=== PATIENT | female | born 1995 | race Caucasian/White ===

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

== ENCOUNTER 2017-03-16 16:28 | Emergency (ER) | payer BC ==
[2017-03-16 16:42] VITALS: BP 112/69
--- NOTE | 2017-03-16 17:54 | UC ---
FLU HPI - HPI Summary HPI Summary: THREE DAYS OF FEVER, FATIGUE, BODY ACHES, SORE THROAT. 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 Hx Last Menstrual Period: 1 WEEK AGO Onset/Duration: Gradual Onset, Lasting Days, Still Present Severity Currently: Moderate Severity Initially: Moderate Associated Signs & Symptoms: Positive: Fever, F/C, Myalgia, Sore Throat Related Hx: Possible Flu/Infectious Exposure - Risk Factors Influenza Risk Factors: Negative - Allergy/Home Medications Allergies/Adverse Reactions: Allergies Allergy/AdvReac Type Severity Reaction Status Date / Time No Known Allergies Allergy Verified 03/16/17 16:36 Home Medications: Home Medications Acetaminophen [Acetaminophen Extra Stren] 2 tab PO TID PRN 03/16/17 [History Confirmed 03/16/17] PMH/Surg Hx/FS Hx/Imm Hx Previously Healthy: Yes Endocrine History Of: Denies: Diabetes, Thyroid Disease Cardiovascular History Of: Denies: Cardiac Disorders, Hypertension Respiratory History Of: Denies: COPD, Asthma GI/ History Of: Denies: Ulcer - Surgical History Surgical History: Yes Surgery Procedure, Year, and Place: wisdom teeth extraction, bilat tubes - Family History Known Family History: Positive: Hypertension Negative: Renal Disease - Social History Occupation: Student Lives: With Family Alcohol Use: Rare Substance Use Type: None Smoking Status (MU): Never Smoked Tobacco Review of Systems Constitutional: Fever, Chills, Fatigue Skin: Negative Eyes: Negative ENT: Sore Throat Respiratory: Negative Cardiovascular: Negative Gastrointestinal: Negative Genitourinary: Negative Motor: Negative Neurovascular: Negative Musculoskeletal: Myalgia Neurological: Negative Psychological: Negative All Other Systems Reviewed And Are Negative: Yes Physical Exam Triage Information Reviewed: Yes Appearance: Well-Appearing, No Pain Distress, Well-Nourished Vital Signs: Initial Vital Signs Temp 99.0 F 03/16/17 16:38 Pulse 123 03/16/17 16:38 Resp 20 03/16/17 16:38 BP 112/69 03/16/17 16:38 Pulse Ox 98 03/16/17 16:38 Vital Signs Reviewed: Yes Eye Exam: Normal ENT: Positive: Hearing grossly normal, Pharyngeal erythema, TMs normal, Tonsillar swelling Dental Exam: Normal Neck exam: Normal Neck: Positive: Supple, Nontender, No Lymphadenopathy, Other: - NEGATIVE KERNIGS. Negative: Nuchal Rigidity, Tenderness @, Enlarged Nodes @ Respiratory Exam: Normal Respiratory: Positive: Chest non-tender, Lungs clear, Normal breath sounds, No respiratory distress Cardiovascular Exam: Normal Cardiovascular: Positive: RRR, No Murmur, Pulses Normal Abdominal Exam: Normal Abdomen Description: Positive: Nontender, No Organomegaly, Soft Musculoskeletal Exam: Normal Musculoskeletal: Positive: Strength Intact, ROM Intact, No Edema Neurological Exam: Normal Psychological Exam: Normal Psychological: Positive: Normal Response To Family Skin Exam: Normal Flu Course/Dx - Course Course Of Treatment: A2X ATTEMPT TO GET BLOOD DRAW FOR MONOSPOT. UNABLE TO SOURCE VEIN. PATIENT ELECTED TO CALL PRIMARY CARE AND GET APPOINTMENT FOR OUT PATIENT LAB TO HAVE MONOSPOT DRAWN. - Differential Dx/Diagnosis Differential Diagnosis/HQI/PQRI: Influenza, Upper Respiratory Infection, Other - STREP MONO Provider Diagnoses: TONSILLITIS. VIRAL SYNDROME; MONONUCLEOSIS Discharge - Discharge Plan Condition: Stable Disposition: HOME Patient Education Materials: Mononucleosis (ED), Tonsillitis (ED), Viral Syndrome (ED) Forms: *School Release Referrals: Carolina Sutton MD [Primary Care Provider] -
== END 2017-03-16 18:04 | disposition home or self-care (01) ==
LOC: UCEAST 16:28
DX: J03.90 Acute tonsillitis, unspecified (principal); B34.9 Viral infection, unspecified; B27.90 Infectious mononucleosis, unspecified without complication
CPT/HCPCS: 87502; 87651; 99211; G0463

== ENCOUNTER 2017-05-01 10:33 | Emergency (ER) | payer BC ==
[2017-05-01 11:38] VITALS: BP 122/78
--- NOTE | 2017-05-01 12:08 | UC ---
Mary Motta Salem, scribed for Delfina Myers MD on 05/01/17 at 1144 . Complaint Female HPI - HPI Summary HPI Summary: Patient is a 21 y/o F who presents to the with a complaint since the past couple of days. She reports frequency and dysuria, but denies abd pain or hematuria. She states that she had 2 UTIs since December 2016 and both resolved with Rx. She states that she used to get UTIs often as a child, as well. Pt states that while she is sexually active she has not noticed any associations between sx and sexual activity. She also states that sx are not clustered around menstrual cycle. She also denies any vaginal discharge or irritation. Has been using cranberry supplement since last UTI. Patients medication reviewed this visit. - History Of Current Complaint Chief Complaint: UCGU Stated Complaint: UTI COMPLAINT Hx Obtained From: Patient Hx Last Menstrual Period: 1 WEEK AGO Onset/Duration: Gradual Onset, Lasting Days, Still Present Timing: Intermittent Severity Initially: Moderate Severity Currently: Moderate Character: Burning Aggravating Factor(s): Urination Alleviating Factor(s): Nothing Associated Signs And Symptoms: Positive: Negative. Negative: Vaginal Discharge - Allergies/Home Medications Allergies/Adverse Reactions: Allergies Allergy/AdvReac Type Severity Reaction Status Date / Time No Known Allergies Allergy Verified 03/16/17 16:36 Home Medications: Home Medications Control 1 tab PO DAILY 05/01/17 [History] PMH/Surg Hx/FS Hx/Imm Hx Previously Healthy: Yes - Surgical History Surgical History: Yes Surgery Procedure, Year, and Place: wisdom teeth extraction, bilat tubes - Family History Known Family History: Positive: Hypertension, Other - No FHx of UTI. Negative: Renal Disease - Social History Occupation: Student - [employer] Alcohol Use: Rare Substance Use Type: None Smoking Status (MU): Never Smoked Tobacco Review of Systems Constitutional: Negative Skin: Negative Eyes: Negative ENT: Negative Respiratory: Cough - Pt is recovering from a cold. Cardiovascular: Negative Gastrointestinal: Negative Genitourinary: Dysuria, Frequency, Other - No hematuria. No vaginal discharge or irritation. Motor: Negative Neurovascular: Negative Musculoskeletal: Negative Neurological: Negative Psychological: Negative All Other Systems Reviewed And Are Negative: Yes Physical Exam Triage Information Reviewed: Yes Appearance: Well-Appearing, No Pain Distress Vital Signs: Initial Vital Signs Temp 98.5 F 05/01/17 11:04 Pulse 104 05/01/17 11:04 Resp 16 05/01/17 11:04 BP 117/73 05/01/17 11:04 Pulse Ox 99 05/01/17 11:04 Vital Signs Reviewed: Yes Eyes: Positive: Conjunctiva Clear ENT: Positive: Tonsillar swelling - with mild erythema Dental Exam: Normal Neck: Positive: Enlarged Nodes @ - anterior and posterior cervical nodes palpable, small and non-tender Respiratory: Positive: Lungs clear, Normal breath sounds Cardiovascular: Positive: RRR, No Murmur Abdomen Description: Positive: Nontender, No Organomegaly, Soft Neurological Exam: Normal Neurological: Positive: Alert Psychological Exam: Normal Skin Exam: Normal Diagnostics - Laboratory Diagnostic Studies Completed/Ordered: POC U Leukocyte Esteras: 2+. POC Urine Blood: trace-lysed Complaint Female Dx - Course Course Of Treatment: bactrim for UTI - Differential Dx/Diagnosis Provider Diagnoses: UTI Discharge - Discharge Plan Condition: Stable Disposition: HOME Prescriptions: Sulfamethox/Trimethoprim DS* [Bactrim DS 800/160 TAB*] 1 tab PO DAILY #10 tab Patient Education Materials: Urinary Tract Infection in Women (ED) Referrals: Carolina Sutton MD [Primary Care Provider] - Additional Instructions: You have been prescribed bactrim for likely urinary tract infection. The results of the culture will be available on 05/03 or 05/04. Ensure a high intake of fluids. As dicussed, you will follow up with your primary care doctor due frequent urinary tract infections. The documentation as recorded by the Mary moody Salem accurately reflects the service I personally performed and the decisions made by me, Delfina Myers MD.
== END 2017-05-01 12:00 | disposition home or self-care (01) ==
LOC: UCEAST 10:33
DX: N39.0 Urinary tract infection, site not specified (principal); B96.4 Proteus (mirabilis) (morganii) as the cause of diseases classified elsewhere; Z87.440 Personal history of urinary (tract) infections
CPT/HCPCS: 81003; 87077; 87086; 87186; 99212; G0463

== ENCOUNTER 2017-07-30 10:15 | Emergency (ER) | payer BC ==
--- NOTE | 2017-07-30 10:29 | UC ---
Complaint Female HPI - HPI Summary HPI Summary: 21 YEAR OLD FEMALE PRESENTS WITH COMPLAINS OF URINARY URGENCY/FREQUENCY. - History Of Current Complaint Stated Complaint: URINARY ISSUE Time Seen by Provider: 07/30/17 10:17 Hx Obtained From: Patient Hx Last Menstrual Period: 1 WEEK AGO Onset/Duration: Sudden Onset Timing: Constant Severity Initially: Moderate Severity Currently: Moderate Pain Scale Used: 0-10 Numeric - 5 - Allergies/Home Medications Allergies/Adverse Reactions: Allergies Allergy/AdvReac Type Severity Reaction Status Date / Time No Known Allergies Allergy Verified 07/30/17 10:22 PMH/Surg Hx/FS Hx/Imm Hx Previously Healthy: Yes - Surgical History Surgical History: Yes Surgery Procedure, Year, and Place: wisdom teeth extraction, bilat tubes - Family History Known Family History: Positive: Hypertension, Other - No FHx of UTI. Negative: Renal Disease - Social History Alcohol Use: Rare Substance Use Type: None Smoking Status (MU): Never Smoked Tobacco Review of Systems Constitutional: Negative Skin: Negative Eyes: Negative ENT: Negative Respiratory: Negative Cardiovascular: Negative Gastrointestinal: Negative Genitourinary: Frequency, Urgency Motor: Negative Neurovascular: Negative Musculoskeletal: Negative Neurological: Negative Psychological: Negative All Other Systems Reviewed And Are Negative: Yes Physical Exam Triage Information Reviewed: Yes Eye Exam: Normal ENT Exam: Normal Dental Exam: Normal Neck exam: Normal Neck: Positive: 1 Respiratory Exam: Normal Cardiovascular Exam: Normal Abdominal Exam: Normal Musculoskeletal Exam: Normal Neurological Exam: Normal Psychological Exam: Normal Skin Exam: Normal Complaint Female Dx - Differential Dx/Diagnosis Provider Diagnoses: URINARY FREQUNECY. URINARY URGENCY Discharge - Discharge Plan Condition: Stable Disposition: HOME Prescriptions: Cephalexin CAP* [Keflex CAP*] 500 mg PO TID #30 cap Patient Education Materials: Urinary Tract Infection in Women (ED) Referrals: Carolina Sutton MD [Primary Care Provider] - Navjot Leyva MD [Medical Doctor] -
[2017-07-30 10:31] VITALS: BP 111/75
== END 2017-07-30 10:46 | disposition home or self-care (01) ==
LOC: UCEAST 10:15
DX: R35.0 Frequency of micturition (principal); R39.15 Urgency of urination; Z32.02 Encounter for pregnancy test, result negative
CPT/HCPCS: 81003; 84702; 87077; 87086; 87186; 99212; G0463

== ENCOUNTER 2024-08-16 01:34 | Inpatient (IN) ==
[2024-08-16] MEDS: Lactated Ringers 1000 ml BAG 1,000 ML IV ONE (02:26)
[2024-08-16 02:34] LABS: ABS Lymphocytes 2.2 10^3/uL (1.0-4.8); ABS Monocytes 0.9 10^3/uL (0.0-0.9); ABS Neutrophils 4.4 10^3/uL (1.5-7.6); ABS Nucleated RBC 0.02 10^3/ul; Eosinophil % 0.5 %; Hematocrit 33.1 % (35-45); Hemoglobin 11.3 g/dL (11.5-14.3); Lymphocyte % 29.5 %; Mean Corpuscular Hemoglobin 29.8 pg (27-33); Mean Corpuscular Hgb Conc 34.2 g/dL (31-36); Mean Platelet Volume 6.8 fL (7.5-11.2); Nucleated Red Blood Cells % 0.3 %/100WBC (0.0-0.8); Platelet Count 296 10^3/uL (150-450); Red Blood Count 3.81 10^6/uL (3.63-4.92); White Blood Count 7.6 10^3/uL (3.8-11.8)
[2024-08-16] MEDS ORDERED: Phenylephrine 40 mcg/mL 10mL (400mcg) SYRINGE ONE (02:44)
[2024-08-16] MEDS: Oxytocin in LR 20,000 MILLI.UNIT/1,000 ML BAG IV ONE (03:09)
[2024-08-16] MEDS: Lidocaine 1% VIAL 10 MG/ML 30 ML VIAL INJ PRN (03:15)
[2024-08-16] MEDS: Carboprost Tromethamine 250 mcg 1 ml VIAL ONE (03:25)
[2024-08-16 03:31] LABS: Albumin/Globulin Ratio 1.5 (1-3); Calcium 9.1 mg/dL (8.6-10.3); Creatinine, Serum 0.53 mg/dL (0.51-0.95); Globulin 2.7 g/dL (2-4); Potassium 3.5 mmol/L (3.5-5.0); Total Bilirubin 0.9 mg/dL (0.2-1.0); Total Protein 6.7 g/dL (6.4-8.9); Uric Acid 4.2 mg/dL (2.3-6.6); eGFR CKD-EPI 129.9 (>60)
[2024-08-16] MEDS ORDERED: Ondansetron 4 mg VIAL 2 MG/ML 2 ml VIAL IV ONE (03:52)
[2024-08-16] MEDS: Carboprost Tromethamine 250 mcg 1 ml VIAL IM ONE (03:53)
[2024-08-16] MEDS: Oxytocin in LR 20,000 MILLI.UNIT/1,000 ML BAG IV SCH (03:54)
[2024-08-16] MEDS ORDERED: Lactated Ringers 1000 ml BAG 1,000 ML IV SCH (04:00)
[2024-08-16 07:37] LABS: ABS Lymphocytes 0.9 10^3/uL (1.0-4.8); ABS Neutrophils 13.3 10^3/uL (1.5-7.6); ABS Nucleated RBC 0.01 10^3/ul; Hematocrit 28.8 % (35-45); Hemoglobin 9.9 g/dL (11.5-14.3); Lymphocyte % 6.2 %; Mean Corpuscular Hemoglobin 29.8 pg (27-33); Mean Corpuscular Hgb Conc 34.2 g/dL (31-36); Mean Corpuscular Volume 86.9 fL (80-97); Mean Platelet Volume 6.9 fL (7.5-11.2); Platelet Count 253 10^3/uL (150-450); Red Blood Count 3.31 10^6/uL (3.63-4.92); White Blood Count 15.2 10^3/uL (3.8-11.8)
[2024-08-16] MEDS: Witch Hazel PAD JAR TOPICAL PRN (07:59)
[2024-08-16] MEDS: Dibucaine 1% OINT 28.35 GM TUBE PR PRN (07:59)
[2024-08-16] MEDS: Lidocaine 1.5% EPI 1:200,000 30 ML SDV ONE (08:32)
[2024-08-16] MEDS: OBEPIDURAL (200 ML) 0 ML EPIDURAL ONE (08:33)
[2024-08-16] MEDS: OBEPIDURAL (200 ML) 200 ML EPIDURAL ONE (08:37)
[2024-08-16 21:38] LABS: Urine Creatinine Concentration 14.84 mg/dL (20.00-320.00); Urine TP Creat Ratio 3.77 mg/mg
[2024-08-16 21:43] LABS: Urine Benzodiazepine Screen None Detected (None Detect); Urine Cannabinoids Screen None Detected (None Detect); Urine Opiates Screen None Detected (None Detect)
[2024-08-17 06:38] LABS: ABS Basophils 0.1 10^3/uL (0.0-0.1); ABS Eosinophils 0.1 10^3/uL (0.0-0.5); ABS Lymphocytes 2.5 10^3/uL (1.0-4.8); ABS Monocytes 0.9 10^3/uL (0.0-0.9); ABS Neutrophils 6.8 10^3/uL (1.5-7.6); Eosinophil % 0.8 %; Hematocrit 25.5 % (35-45); Lymphocyte % 23.9 %; Mean Corpuscular Hemoglobin 30.2 pg (27-33); Mean Corpuscular Hgb Conc 35.1 g/dL (31-36); Mean Corpuscular Volume 85.9 fL (80-97); Platelet Count 226 10^3/uL (150-450); Red Blood Count 2.97 10^6/uL (3.63-4.92); Red Cell Distribution Width 15.3 % (12-17); White Blood Count 10.3 10^3/uL (3.8-11.8)
[2024-08-17 08:28] VITALS: BP 124/85
== END 2024-08-17 18:20 | disposition home or self-care (01) | DRG 560 ==
LOC: MCHOBOUT 01:34 → MCHOB 02:05
PROVIDERS: ADMIT Midwife; ATTEND Midwife